=== PATIENT | female | born 1960 | race American Indian/Alaskan Native ===

== ENCOUNTER 2019-04-08 09:57 | Outpatient (CLI) | payer MEDICARE, OTHER ==
--- NOTE | 2019-04-09 11:36 | Mammography Report ---
DIGITAL SCREENING MAMMOGRAM WITH CAD, 04/08/2019 INDICATION: Routine screening mammography. TECHNIQUE: Digital bilateral 2D mammography was obtained in the craniocaudal and mediolateral obliq ue projections. This examination was interpreted with the benefit of Computer-Aided Detection analysi s. COMPARISON: 04/06/2018, 04/05/2017 and 04/03/2015 FINDINGS: Breast Density: There are scattered areas of fibroglandular density. A right asymmetry on the CC view requires additional imaging. No architectural distortion or suspicio us calcifications of the right breast. There is no evidence of dominant mass, suspicious calcificatio ns or architectural distortion in the left breast. IMPRESSION: Right asymmetry requiring additional workup. Recommend recall for right ML and spot magni fication CC views and right breast ultrasound if needed. Follow up recommendation: Special View: Mag Category 0: Incomplete. Needs additional imaging evaluation and/or prior mammograms for comparison. A "normal" or negative report should not discourage follow up or biopsy of a clinically significant f inding. A written summary of these findings will be mailed to the patient. The patient will be entered into a mammography reporting system which will generate a reminder letter for the patient's next appointmen t at the appropriate interval. The [employer] recommends yearly mammograms starting at age 40 and continuing as l komal as a woman is in good health. Breast MRI is recommended for women with an approximate 20-25% or greater lifetime risk of breast cancer, including women with a strong family history of breast or ova chelsey cancer or who have been treated for Hodgkin's disease. Signer Name: Juan Antonio Sanchez MD Signed: 04/09/2019 11:31 AM Workstation Name: [id number]
== END 2019-04-08 09:58 | disposition home or self-care (01) ==
LOC: SPVWC 09:57
PROVIDERS: ATTEND Internal Medicine
DX: Z12.31 Encounter for screening mammogram for malignant neoplasm of breast (principal); I10 Essential (primary) hypertension; M13.849 Other specified arthritis, unspecified hand; M13.819 Other specified arthritis, unspecified shoulder
CPT/HCPCS: 77067

== ENCOUNTER 2019-05-20 09:54 | Outpatient (CLI) | payer MEDICARE, OTHER ==
--- NOTE | 2019-05-20 11:05 | Mammography Report ---
DIGITAL BILATERAL DIAGNOSTIC MAMMOGRAM WITH CAD, 05/20/2019 INDICATION: ABNORMAL MAMMOGRAM. Recall to evaluate a right mammographic asymmetry identified at recen t screening. The patient also describes new left breast pain since her screening mammogram. TECHNIQUE: Digital bilateral mammographic imaging was performed. This examination was interpreted with the benefit of Computer-aided Detection analysis. COMPARISON: 04/08/2019 screening mammogram Breast Density: There are scattered areas of fibroglandular density. FINDINGS: ML and spot magnification CC views of the right breast performed and are negative. Satisfac tory effacement of asymmetry on the CC view. No mass, architectural distortion or suspicious calcific ations of the left breast. No change since the last mammogram. IMPRESSION: No mammographic evidence of malignancy. No explanation for left breast pain. Follow up recommendation: Routine BI-RADS Category 1: Negative. A "normal" or negative report should not discourage follow up or biopsy of a clinically significant f inding. A written summary of these findings will be mailed to the patient. The patient will be entered into a mammography reporting system which will generate a reminder letter for the patient's next appointmen t at the appropriate interval. According to the [employer], yearly mammograms are recommended starting at age 40 and continuing as long as a woman is in good health. Breast MRI is recommended for women with an destin roximately 20-25% or greater lifetime risk of breast cancer, including women with a strong family his tory of breast or ovarian cancer and women who have been treated for Hodgkin's disease. Signer Name: Juan Antonio Sanchez MD Signed: 05/20/2019 11:01 AM Workstation Name: [id number]
== END 2019-05-20 09:55 | disposition home or self-care (01) ==
LOC: SPVWC 09:54
PROVIDERS: ATTEND Internal Medicine
DX: N64.89 Other specified disorders of breast (principal)
CPT/HCPCS: 77066